=== PATIENT | male | born 1975 | race Caucasian/White ===

== ENCOUNTER 2024-11-28 18:44 | Emergency (ER) | payer SELFPAY ==
[2024-11-28] MEDS ORDERED: MORPHINE 4 MG/ML SYR ONE (19:40)
[2024-11-28] MEDS ORDERED: ONDANSETRON 4 MG/2 ML VIAL ONE (19:40)
[2024-11-28] MEDS ORDERED: NA CHLORIDE 0.9% 1,000 ML ONE (19:40)
[2024-11-28 19:57] LABS: Absolute Basophils 0.1 K/uL (0-0.5); Absolute Eosinophils 0.1 K/uL (0-0.5); Absolute Lymphocytes (CBC) 1.4 K/uL (0.7-4.9); Absolute Monocytes 0.5 K/uL (0.1-1.3); Absolute Neutrophil 4.1 K/uL (1.8-8.0); Basophils % 0.9 % (0-1.3); Eosinophils % 1.8 % (0-4.4); Hematocrit 36.8 % (39.6-49.0); Hemoglobin 12.5 g/dL (13.6-17.9); Lymphocytes % 22.2 % (15.3-44.8); MCH 29.4 pg (27.0-35.0); MCV 86.3 fL (80-100); MPV 8.4 fL (7.6-11.3); Monocytes % 8.6 % (3.3-12.3); Neutrophils % 66.5 % (41.7-73.7); Nucleated Red Blood Cells % 0.1 % (0-0); Platelets 249 thou/uL (152-406); RBC Red Blood Cell Count 4.27 M/uL (4.33-5.43); Red Cell Distribution Width 14.9 % (12.1-15.2)
[2024-11-28 20:22] LABS: Albumin 3.3 g/dL (3.4-5.0); Albumin/Globulin Ratio 0.9 (1.1-1.8); Bilirubin Total 0.2 mg/dL (0.2-1.0); Globulin 3.6 g/dL (2.3-3.5); Protein, Total 6.9 g/dL (6.4-8.2)
--- NOTE | 2024-11-28 20:48 | RAD REPORT ---
EXAMINATION: CT ABDOMEN AND PELVIS WITH CONTRAST CLINICAL INDICATION: ABD PAIN TECHNIQUE: CT abdomen and pelvis was performed, after the administration of IV contrast, as per [facility] protocol. Axial, sagittal and coronal reconstructions were obtained. One or more of the following dose reduction techniques were used: Automated exposure control, adjustment of the mA and k V according to patient size, and iterative reconstruction. Unless otherwise specified, incidental findings do not require dedicated imaging follow-up. COMPARISON: No prior exam. FINDINGS: LOWER CHEST: The visualized lung bases are clear. Small hiatal hernia. LIVER: Normal in size and contour. No focal lesion. Grossly unremarkable gallbladder. SPLEEN: Normal size. No focal lesion. PANCREAS: No mass, ductal dilation, or almita-pancreatic fluid. ADRENALS: Normal; no mass. KIDNEYS: Normal size and contour. No hydronephrosis. GASTROINTESTINAL TRACT: No evidence of free air, significant intra-abdominal free fluid, bowel obstru ction or abscess. Moderate stool is retained throughout the colon. APPENDIX: Normal appendix. LYMPH NODES: No lymphadenopathy. MUSCULOSKELETAL: No acute or suspicious osseous abnormality. ADDITIONAL FINDINGS: None. IMPRESSION: No acute abnormalities seen in the abdomen or pelvis.
[2024-11-28] MEDS ORDERED: LACTULOSE 20 GM/30 ML UCUP ONE (21:00)
--- NOTE | 2024-11-28 21:18 | RAD REPORT ---
EXAM: Right upper quadrant ultrasound. CLINICAL HISTORY: ABD PAIN COMPARISON: None. FINDINGS: Gallbladder: Contracted Bile ducts: No intrahepatic or extrahepatic biliary dilatation. Common bile duct measures 2 mm. Limited imaging of the liver shows no concerning finding. IMPRESSION: Contracted gallbladder, otherwise negative study
--- NOTE | 2024-11-28 21:39 | ER ---
Nurse's Notes [facility] Name: Harshal Zuniga Age: 49 yrs Sex: Male : 1975 Arrival Date: 11/28/2024 Time: 18:44 Bed 18 Private MD: Diagnosis: Constipation Presentation: 11/28 18:50 Chief complaint: Patient states: Severe R sided abdominal pain for 2 weeks. Severe ll1 bloating, N/V. Tries not to eat because it make his stomach hurt more. Coronavirus screen: Client denies travel out of the [place] in the last 14 days. At this time, the client does not indicate any symptoms associated with coronavirus-19. Ebola Screen: Patient denies travel to an Ebola-affected area in the 21 days before illness onset. Initial Sepsis Screen: Does the patient meet any 2 criteria? No. Patient's initial sepsis screen is negative. Does the patient have a suspected source of infection? No. Patient's initial sepsis screen is negative. Risk Assessment: Do you want to hurt yourself or someone else? Patient reports no desire to harm self or others. Onset of symptoms was November 14, 2024. 18:50 Method Of Arrival: Ambulatory ll1 18:50 Acuity: TAMIKA 3 ll1 Triage Assessment: 18:53 General: Appears distressed, uncomfortable, ill, Behavior is calm, cooperative, ll1 appropriate for age, Reports fatigue for. Pain: Complains of pain in abdomen Pain currently is 7 out of 10 on a pain scale. Quality of pain is described as aching, crampy. GI: Reports lower abdominal pain, upper abdominal pain, bloating, indigestion, nausea. Historical: - Allergies: 18:53 No Known Allergies; ll1 - PMHx: 18:53 Hypercholesterolemia; GERD; anxiety; ll1 - PSHx: 18:53 colon surgery; ll1 - Immunization history:: Adult Immunizations up to date. - Infectious Disease History:: Denies. - Social history:: Smoking status: Patient reports the use of cigarette tobacco products, smokes one-half pack cigarettes per day. Screenin:00 [facility] ED Fall Risk Assessment (Adult) History of falling in the last 3 months, rg5 including since admission No falls in past 3 months (0 pts) Confusion or Disorientation No (0 pts) Intoxicated or Sedated No (0 pts) Impaired Gait No (0 pts) Mobility Assist Device Used No (0 pt) Altered Elimination No (0 pt) Score/Fall Risk Level 0 - 2 = Low Risk Oriented to surroundings, Maintained a safe environment, Hourly rounding (assess needs \T\ fall precautionary measures) done. Abuse screen: Denies threats or abuse. Nutritional screening: No deficits noted. Tuberculosis screening: No symptoms or risk factors identified. Assessment: 20:00 General: Appears uncomfortable, Behavior is calm, cooperative, appropriate for age. rg5 20:00 Pain: Complains of pain in abdomen. Neuro: Level of Consciousness is awake, alert, rg5 obeys commands, Oriented to person, place, time, situation. Cardiovascular: Patient's skin is warm and dry. Respiratory: Airway is patent Trachea midline Respiratory effort is even, unlabored, Respiratory pattern is regular, symmetrical. GI: Bowel sounds present in left lower quadrant Reports lower abdominal pain, upper abdominal pain, constipation, vomiting. : No signs and/or symptoms were reported regarding the genitourinary system. EENT: No signs and/or symptoms were reported regarding the EENT system. Derm: Skin is intact, Skin is dry, Skin is normal, Skin temperature is warm. Musculoskeletal: Circulation, motion, and sensation intact. Range of motion: intact in all extremities. 21:00 Reassessment: Patient and/or family updated on plan of care and expected duration. Pain rg5 level reassessed. Patient is alert, oriented x 3, equal unlabored respirations, skin warm/dry/pink. 22:00 Reassessment: Patient and/or family updated on plan of care and expected duration. Pain rg5 level reassessed. Patient is alert, oriented x 3, equal unlabored respirations, skin warm/dry/pink. Patient states symptoms have improved. Vital Signs: 18:50 BP 149 / 91; Pulse 76; Resp 18; Temp 97.3; Pulse Ox 98% ; Weight 99.79 kg; Height 5 ft. ll1 9 in. ; Pain 8/10; 20:00 BP 143 / 92; Pulse 66; Resp 17; Pulse Ox 95% ; rg5 21:35 BP 141 / 88; Pulse 67; Resp 18; Pulse Ox 97% ; rg5 18:50 Body Mass Index 32.49 (99.79 kg, 175.26 cm) ll1 18:50 Pain Scale: Adult ll1 ED Course: 18:47 Patient arrived in ED. im 18:51 Acacia Renee PA-C [facility]. sb4 18:51 Sanford Vaughn MD is Attending Physician. sb4 18:53 Triage completed. ll1 18:53 Arm band placed on. ll1 19:11 Radiology exam delayed due to lab results not completed at this time. (BUN/Creatinine) jc4 IV insertion attempt and/or patient not having appropriate IV at this time. 19:42 Denver Romero, RN is Primary Nurse. rg5 19:45 No provider procedures requiring assistance completed. Inserted saline lock: 20 gauge rg5 in right antecubital area, using aseptic technique. Blood collected. Flushed with 10 mL NS. 19:52 CBC with Diff Sent. ha1 19:52 CMP Sent. ha1 19:52 Lipase Sent. ha1 20:00 Patient has correct armband on for positive identification. Bed in low position. Call rg5 light in reach. Side rails up X 1. Door closed. Noise minimized. 20:38 CT Abd/Pelvis - IV Contrast Only In Process Unspecified. EDMS 21:09 US Abdomen Limited In Process Unspecified. EDMS 21:38 Emanuel Lou MD is Referral Physician. sb4 22:04 IV discontinued, bleeding controlled, No redness/swelling at site. Pressure dressing rg5 applied. Administered Medications: 19:48 Drug: Ondansetron IVP 4 mg IVP once; over 2 minutes Route: IVP; Site: right antecubital;ha1 20:31 Follow up: Response: No adverse reaction rg5 19:48 Drug: NS 0.9% IV 1000 ml IV at 1 bolus Per protocol; to be given as a bolus over 60 ha1 minutes Route: IV; Rate: 1 bolus; Site: right antecubital; 21:00 Follow up: IV Status: Completed infusion; IV Intake: 1000ml rg5 19:50 Drug: morphine IVP or IV 4 mg IVP once over 4 mins Route: IVP; Infused Over: 4 mins; ha1 Site: right antecubital; 20:31 Follow up: Response: No adverse reaction; Pain is decreased rg5 21:04 Drug: Lactulose PO 20 grams 30 ml PO once Volume: 30 ml; Route: PO; rg5 22:00 Follow up: Response: No adverse reaction rg5 Medication: 20:00 VIS not applicable for this client. rg5 Intake: 21:00 IV: 1000ml; Total: 1000ml. rg5 Outcome: 21:38 Discharge ordered by . sb4 22:03 Discharged to home ambulatory, rg5 22:03 Condition: stable 22:03 Discharge instructions given to patient, Instructed on discharge instructions, Demonstrated understanding of instructions, follow-up care, Prescriptions given X 2, 22:04 Patient left the ED. rg5 Signatures: Dispatcher [employer] EDNeto Quintana, RN RN ll1 Patrizia Yun RN RN ha1 Acacia Renee, PAMitchC PAN[place] sb4 Caren Nascimento Rommel, RN RN rg5 Simeon Baker jc4 Corrections: (The following items were deleted from the chart) 20:23 20:00 BP 122 / 69; Pulse 86bpm; Resp 17bpm; Pulse Ox 95%; rg5 rg5
--- NOTE | 2024-11-28 21:39 | EDPHYS ---
Physician Documentation [facility] Name: Harshal Zuniga Age: 49 yrs Sex: Male : 1975 Arrival Date: 11/28/2024 Time: 18:44 Bed 18 Private MD: ED Physician Sanford Vaughn HPI: 11/28 19:02 This 49 yrs old Male presents to ER via Ambulatory with complaints of Abdominal Pain, sb4 Vomiting. 19:56 Patient reports intermittent abdominal pain and bloating for quite some time now. sb4 States is associated with nausea and vomiting. Worse after meals. States he has had CAT scans and x-rays in the past without a diagnoses. Does report a history of IBS and some sort of colon resection. Denies any fever or diarrhea. Does report a history of fatty liver disease. Historical: - Allergies: 18:53 No Known Allergies; ll1 - PMHx: 18:53 Hypercholesterolemia; GERD; anxiety; ll1 - PSHx: 18:53 colon surgery; ll1 - Immunization history:: Adult Immunizations up to date. - Infectious Disease History:: Denies. - Social history:: Smoking status: Patient reports the use of cigarette tobacco products, smokes one-half pack cigarettes per day. ROS: 19:56 Constitutional: Negative for fever, chills, and weight loss, sb4 19:56 Abdomen/GI: Positive for abdominal pain, nausea, abdominal distension, 19:56 All other systems are negative, Exam: 19:57 Head/Face: Normocephalic, atraumatic. Eyes: Extra-ocular motions intact. Periorbital sb4 areas with no swelling, redness, or edema. ENT: Mucous membranes moist. Cardiovascular: Regular rate and rhythm with a normal S1 and S2. Respiratory: No increased work of breathing, no retractions or nasal flaring. Skin: Warm, dry with normal turgor. Normal color with no rashes, no lesions, and no evidence of cellulitis. 19:57 Constitutional: The patient appears alert, awake, uncomfortable, 19:57 Abdomen/GI: Inspection: distension, that is moderate, in the right upper quadrant, left upper quadrant, right lower quadrant and left lower quadrant, Bowel sounds: diminished, Palpation: moderate abdominal tenderness, in the right upper quadrant and left upper quadrant, Vital Signs: 18:50 BP 149 / 91; Pulse 76; Resp 18; Temp 97.3; Pulse Ox 98% ; Weight 99.79 kg; Height 5 ft. ll1 9 in. ; Pain 8/10; 20:00 BP 143 / 92; Pulse 66; Resp 17; Pulse Ox 95% ; rg5 21:35 BP 141 / 88; Pulse 67; Resp 18; Pulse Ox 97% ; rg5 18:50 Body Mass Index 32.49 (99.79 kg, 175.26 cm) ll1 18:50 Pain Scale: Adult ll1 MDM: 18:53 Medical Screening Exam initiated sb4 19:58 Differential diagnosis: cholecystitis, Cholelithiasis, pancreatitis, ascites, liver sb4 disease. 23:16 Data reviewed: vital signs, nurses notes, lab test result(s), radiologic studies, and sb4 as a result, I will discharge patient. Historians other than the Patient: Spouse/Significant Other: . 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 11/28 18:56 Order name: CBC with Diff; Complete Time: 20:19 ll1 11/28 18:56 Order name: CMP; Complete Time: 20:25 ll1 11/28 18:56 Order name: Lipase; Complete Time: 20:25 ll1 11/28 18:56 Order name: CT Abd/Pelvis - IV Contrast Only; Complete Time: 20:49 ll1 11/28 20:49 Order name: US Abdomen Limited; Complete Time: 21:21 sb4 11/28 18:56 Order name: IV Saline Lock; Complete Time: 19:52 ll1 11/28 18:56 Order name: Labs collected and sent; Complete Time: 19:52 ll1 Administered Medications: 19:48 Drug: Ondansetron IVP 4 mg IVP once; over 2 minutes Route: IVP; Site: right antecubital;ha1 20:31 Follow up: Response: No adverse reaction rg5 19:48 Drug: NS 0.9% IV 1000 ml IV at 1 bolus Per protocol; to be given as a bolus over 60 ha1 minutes Route: IV; Rate: 1 bolus; Site: right antecubital; 21:00 Follow up: IV Status: Completed infusion; IV Intake: 1000ml rg5 19:50 Drug: morphine IVP or IV 4 mg IVP once over 4 mins Route: IVP; Infused Over: 4 mins; ha1 Site: right antecubital; 20:31 Follow up: Response: No adverse reaction; Pain is decreased rg5 21:04 Drug: Lactulose PO 20 grams 30 ml PO once Volume: 30 ml; Route: PO; rg5 22:00 Follow up: Response: No adverse reaction rg5 Disposition Summary: 11/28/24 21:38 Discharge Ordered Notes: Location: Home sb4 Problem: new sb4 Symptoms: are unchanged sb4 Condition: Stable sb4 Diagnosis - Constipation sb4 Followup: sb4 - With: Emanuel Lou MD - When: As needed - Reason: Further diagnostic work-up, Recheck today's complaints, Re-evaluation by your physician Discharge Instructions: - Discharge Summary Sheet sb4 - Constipation, Adult, [id number] sb4 Forms: - Patient Portal Instructions sb4 - Leadership Thank You Letter sb4 Prescriptions: - Colace 100 mg Oral Tablet - take 1 tablet ORAL route every 12 hours; 14 tablet; Refills: 0, Product sb4 Selection Permitted - Lactulose 10 gram/15 mL Oral Solution - take 30 milliliters ORAL route once daily; 300 milliliter; Refills: 0, Product sb4 Selection Permitted Addendum: 11/30/2024 10:05 Co-signature as Attending Physician, Sanford Vaughn MD I reviewed the patient's care r t provided by the Advanced Practice Provider and agree with the diagnosis and treatment plan. Signatures: Dispatcher [employer] EDMS Neto Stephesnon RN RN ll1 Patrizia Yun RN RN ha1 Acacia Renee PAMitchC PAMitchC sb4 Sanford Vaughn MD MD rt Denver Romero RN RN rg5 Corrections: (The following items were deleted from the chart) 11/28 18:57 18:57 CBC+H.LAB.BRZ ordered. EDMS EDMS 18:57 18:57 COMPREHENSIVE METABOLIC PANEL+C.LAB.BRZ ordered. EDMS EDMS 18:57 18:57 LIPASE+C.LAB.BRZ ordered. EDMS EDMS 18:57 18:57 Abdomen Pelvis W Con+CT.RAD.BRZ ordered. EDMS EDMS
[2024-11-28 23:10] VITALS: TEMP 97.3
[2024-11-28 23:14] VITALS: BP 141/88; O2SAT 97
== END 2024-11-28 22:04 | disposition home or self-care (01) ==
LOC: ER 18:44
DX: K59.00 Constipation, unspecified (principal)
CPT/HCPCS: 36415; 74177; 76705; 80053; 83690; 85025; 96361; 96374; 96375; 99284; J2405; J7030